=== PATIENT | female | born 1990 | race Caucasian/White ===

== ENCOUNTER 2016-11-10 11:30 | Emergency (ER) | payer MEDICAID | END 2016-11-10 12:35 | disposition home or self-care (01) | LOC: CED 11:30 | DX: J06.9 Acute upper respiratory infection, unspecified (principal); Z20.818 Contact with and (suspected) exposure to other bacterial communicable diseases; F17.210 Nicotine dependence, cigarettes, uncomplicated | CPT/HCPCS: 99282 ==